=== PATIENT | female | born 1990 | race Caucasian/White ===

== ENCOUNTER 2019-01-20 13:02 | Emergency (ER) | payer OTHER ==
[2019-01-20 13:23] VITALS: RESP 16
--- NOTE | 2019-01-20 15:08 | C.PDOC ---
History Of Present Illness 28 year old female presents to ED with complaint of headache, nasal congestion, and sore throat for 10 days. Patient states she returned from [place] on 01/08/19. Patient had an evaluation at an urgent care center for viral syndrome 3 days ago and was tested for Dengue fever and malaria. Unclear if testing for typhoid was sent. She was started empirically on Malarone. Patient states that she has trouble tolerating the malarone as it provokes nausea and vomiting. Patient also complains of occasional body aches, fever, constipation. Patient documented fever as +/- 101. Patient denies diarrhea, hematuria, dysuria, and . Time Seen by Provider: 01/20/19 13:25 Chief Complaint (Nursing): Flu-like Symptoms History Per: Patient History/Exam Limitations: no limitations Onset/Duration Of Symptoms: Days (10) Current Symptoms Are (Timing): Still Present Location Of Pain: Throat, Diffuse Myalgias, Headache Associated Symptoms: Fever, Sore Throat, Nasal Congestion, Nausea, Vomiting, Other (constipation). denies: Chills, Diarrhea Recent travel outside of the [place]: Yes ([place]) Past Medical History Reviewed: Historical Data, Nursing Documentation, Vital Signs Vital Signs: Last Vital Signs Temp 99.4 F 01/20/19 13:19 Pulse 104 H 01/20/19 13:19 Resp 16 01/20/19 13:19 BP 107/68 01/20/19 13:19 Pulse Ox 99 01/20/19 13:19 - Medical History PMH: No Chronic Diseases Surgical History: No Surg Hx Family History: States: Unknown Family Hx - Social History Hx Alcohol Use: No Hx Substance Use: No - Immunization History Hx Tetanus Toxoid Vaccination: No Hx Influenza Vaccination: No Hx Pneumococcal Vaccination: No Review Of Systems Constitutional: Positive for: Fever, Malaise. Negative for: Chills, Weakness Eyes: Negative for: Vision Change ENT: Positive for: Nose Congestion, Throat Pain. Negative for: Nose Discharge Gastrointestinal: Positive for: Nausea, Vomiting, Constipation. Negative for: Abdominal Pain, Diarrhea Genitourinary: Negative for: Dysuria, Hematuria Neurological: Positive for: Headache. Negative for: Weakness, Numbness, Dizziness Physical Exam - Physical Exam Appears: No Acute Distress Skin: Normal Color, Warm, Dry, No Rash Head: Atraumatic, Normacephalic Nose: Other (nasal congestion greater on the left than the right, kissing turbinates) Throat: Normal, No Erythema, No Exudate Neck: Normal ROM, Supple Chest: Symmetrical, No Deformity Cardiovascular: Rhythm Regular, No Murmur Respiratory: No Accessory Muscle Use, No Rales, No Rhonchi, No Wheezing Gastrointestinal/Abdominal: Soft, No Tenderness Extremity: Capillary Refill (< 2 seconds) Neurological/Psych: Oriented x3, Normal Speech, Normal Cognition ED Course And Treatment O2 Sat by Pulse Oximetry: 99 (RA) Progress Note: Discussed plan with patient who expresses understanding. All questions answered and there is agreement with the plan to discharge home with instructions. Patient stable for discharge. Return if symptoms persist or worsen. Medical Decision Making Medical Decision Making: viral syndrome L>R nasal congestion prob L sinus headache Dayquil/Nyquil recommended for symptomatic relief. Consider Dengue (not acute appearing), Malaria (already pending test results and started on Malarone 2 days ago) and Typhoid Fever- pt defers testing as it may have been done 3 days ago and will f/u with same. Defers starting Cipro PO empirically pending Typhoid/Salmonella testing exam more c/w viral syndrome and HPI illustrates improvement, not deterioration. nasal congestion less likely systemic disease, rather viral. plan to f/u w same Urgent Care today/tomorrow for results and ask if Typhoid testing has already been sent. Disposition Doctor Will See Patient In The: Office Counseled Patient/Family Regarding: Studies Performed, Diagnosis - Disposition Referrals: [facility] [employer] [Outside] [facility] [Outside] [facility] [Outside] [facility] [Outside] Alex Barber MD [Staff Provider] - Disposition: HOME/ ROUTINE Disposition Time: 15:08 Condition: GOOD Additional Instructions: follow-up with your Urgent Care for results of Dengue Fever, Malaria and Typhoid Fever Continue Malarone as able Consider Cipro for empiric tx for Typhoid fever if not already tested Dayquil/Nyquil 4x/day (per package instructions) for symptomatic relief of pre sumed viral syndrome and nasal congestion causing sinus headaches. otherwise Motrin/Advil 400-600 mg every 6 hours or Tylenol 1000 mg every 6 hours as needed for pain/headache/fever Instructions: Viral Syndrome (DC) Forms: [facility] ([place]) - Clinical Impression Clinical Impression: Influenza-like illness - Scribe Statement The provider has reviewed the documentation as recorded by the Scribe (Lucia Valero) All medical record entries made by the Scribe were at my direction and personally dictated by me. I have reviewed the chart and agree that the record accurately reflects my personal performance of the history, physical exam, medical decision making, and the department course for this patient. I have also personally directed, reviewed, and agree with the discharge instructions and disposition.
[2019-01-20 15:31] VITALS: BP 105/71; PULSE 102; TEMP 99.9
[2019-01-20 15:32] VITALS: O2SAT 99
== END 2019-01-20 15:31 | disposition home or self-care (01) ==
LOC: C.ER 13:02
DX: J11.1 Influenza due to unidentified influenza virus with other respiratory manifestations (principal)